=== PATIENT | male | born 1985 ===

== ENCOUNTER 2022-04-09 11:54 | Emergency (ER) | payer SELFPAY ==
[~2022-04-09] VITALS: Ht 172 cm; Wt 67.0 kg
--- NOTE | 2022-04-09 12:03 | ED Abdominal Pain ---
General Chief Complaint: Abdominal/GI Problems Stated Complaint: ABD PAIN History of Present Illness Date Seen by Provider: Apr 09, 2022 Time Seen by Provider: 11:57 Initial Comments 37-year-old male presents with abdominal pain. He reports that started about 2 days ago. He reports he did have some increased physical activity of climbing a rope. He denies any nausea, vomiting, fever, chills. The pain gets worse with deep breath, ambulation or if he presses on it. He denies any diarrhea. He reports that the pain initially was across the whole upper abdomen but now is mainly on the right side of the upper abdomen. Patient denies any other medical history does not take any medications. Allergies and Home Medications Allergies Coded Allergies: No Known Drug Allergies (Unverified , 04/09/22) Patient Home Medication List Home Medication List Reviewed: Yes Naproxen (Naprosyn) 500 Mg Tablet, 500 MG PO BID Prescribed by: PAULINA BACH on 04/09/22 [id number] Review of Systems Review of Systems Constitutional: No chills, No fever EENTM: No Symptoms Reported Respiratory: No Symptoms Reported Cardiovascular: No Symptoms Reported Gastrointestinal: See HPI, Abdominal Pain; Denies Constipated, Denies Diarrhea, Denies Nausea, Denies Vomiting Genitourinary: No Symptoms Reported Musculoskeletal: see HPI Skin: no symptoms reported Psychiatric/Neurological: No Symptoms Reported Endocrine: No Symptoms Reported Physical Exam Vital Signs Vital Signs - First Documented 04/09/22 11:57 Temp 36.8 Pulse 84 Resp 18 B/P (MAP) 108/66 (80) Pulse Ox 97 O2 Delivery Room Air Capillary Refill : Height/Weight/BMI Height: '" Weight: lbs. oz. kg; BMI Method: General Appearance: WD/WN, no apparent distress, thin Neck: full range of motion, supple Respiratory: lungs clear, normal breath sounds Cardiovascular: normal peripheral pulses, regular rate, rhythm Gastrointestinal: soft; No distended, No guarding; tenderness (Right upper quadrant) Extremities: normal range of motion, non-tender Back: normal inspection, no vertebral tenderness Neurologic/Psychiatric: alert, normal mood/affect, oriented x 3 Skin: normal color, warm/dry Progress/Results/Core Measures Results/Orders Lab Results Laboratory Tests Test 04/09/22 12:05 Range/Units White Blood Count 9.0 4.3-11.0 10^3/uL Red Blood Count 4.61 4.30-5.52 10^6/uL Hemoglobin 14.2 13.3-17.7 g/dL Hematocrit 40 40-54 % Mean Corpuscular Volume 88 80-99 fL Mean Corpuscular Hemoglobin 31 25-34 pg Mean Corpuscular Hemoglobin Concent 35 32-36 g/dL Red Cell Distribution Width 13.2 10.0-14.5 % Platelet Count 172 130-400 10^3/uL Mean Platelet Volume 9.4 9.0-12.2 fL Immature Granulocyte % (Auto) 0 % Neutrophils (%) (Auto) 70 42-75 % Lymphocytes (%) (Auto) 17 12-44 % Monocytes (%) (Auto) 12 0-12 % Eosinophils (%) (Auto) 1 0-10 % Basophils (%) (Auto) 0 0-10 % Neutrophils # (Auto) 6.3 1.8-7.8 X 10^3 Lymphocytes # (Auto) 1.5 1.0-4.0 X 10^3 Monocytes # (Auto) 1.1 H 0.0-1.0 X 10^3 Eosinophils # (Auto) 0.1 0.0-0.3 10^3/uL Basophils # (Auto) 0.0 0.0-0.1 10^3/uL Immature Granulocyte # (Auto) 0.0 0.0-0.1 10^3/uL Sodium Level 140 135-145 MMOL/L Potassium Level 3.9 3.6-5.0 MMOL/L Chloride Level 104 98-107 MMOL/L Carbon Dioxide Level 25 21-32 MMOL/L Anion Gap 11 5-14 MMOL/L Blood Urea Nitrogen 8 7-18 MG/DL Creatinine 0.80 0.60-1.30 MG/DL Estimat Glomerular Filtration Rate 118 BUN/Creatinine Ratio 10 Glucose Level 102 70-105 MG/DL Calcium Level 9.5 8.5-10.1 MG/DL Corrected Calcium 8.5-10.1 MG/DL Total Bilirubin 0.6 0.1-1.0 MG/DL Aspartate Amino Transf (AST/SGOT) 15 5-34 U/L Alanine Aminotransferase (ALT/SGPT) 17 0-55 U/L Alkaline Phosphatase 91 40-136 U/L C-Reactive Protein 1.32 H <0.50 MG/DL Total Protein 7.5 6.4-8.2 GM/DL Albumin 4.6 H 3.2-4.5 GM/DL Lipase 19 8-78 U/L My Orders Orders - PAULINA BACH DO Cbc With Automated Diff (04/09/22 12:04) Comprehensive Metabolic Panel (04/09/22 12:04) Lipase (04/09/22 12:04) Ua Culture If Indicated (04/09/22 12:04) Crp Fs (04/09/22 12:04) Acute Abd Series (04/09/22 12:04) Ketorolac Injection (Toradol Injection) (04/09/22 12:04) Ed Iv/Invasive Line Start (04/09/22 12:04) Vital Signs/I&O 04/09/22 04/09/22 11:57 14:00 Temp 36.8 36.8 Pulse 84 76 Resp 18 18 B/P (MAP) 108/66 (80) 112/82 Pulse Ox 97 99 O2 Delivery Room Air Room Air Progress Progress Note : Progress Note Patient symptoms improved with Toradol. Patient with negative x-ray and no acute findings on labs. Patient's physical exam and history is consistent with likely muscle strain. Patient and significant other also think that is likely the cause. Patient will be discharged home. He will return to the ER or follow-up with a primary care provider if symptoms worsen or feels he needs to be reevaluated. Diagnostic Imaging Diagonstic Imaging: Xray Plain Films/CT/US/NM/MRI: abdomen Comments Date of Exam:04/09/22 ACUTE ABD SERIES CLINICAL INDICATION: Patient with right upper quadrant pain. EXAM: X-ray of the abdomen with multiple supine and upright views. COMPARISON: None. FINDINGS: There is a nonobstructed bowel gas pattern. There is no evidence of abdominal free air. There are no focal calcifications overlying the expected regions/pathways of both kidneys, ureters, and bladder regions. The visualized bones and extra abdominal soft tissues are unremarkable. IMPRESSION: There is no radiographic evidence for acute abdominal/ pelvic process or urinary tract stones. Reviewed: Reviewed by Me, Reviewed/Discussed Departure Impression Primary Impression: Abdominal wall strain Qualified Codes: S39.011A - Strain of muscle, fascia and tendon of abdomen, initial encounter Disposition: 01 HOME, SELF-CARE Condition: Stable Departure-Patient Inst. Referrals: NO,LOCAL PHYSICIAN (PCP/Family) Primary Care Physician Patient Instructions: Abdominal Muscle Strain (DC) Add. Discharge Instructions: 4% topical lidocaine with menthol cream or gel use as duration Warm moist heat to affected area Gentle stretching All discharge instructions reviewed with patient and/or family. Voiced u nderstanding. Scripts Naproxen (Naprosyn) 500 Mg Tablet 500 MG PO BID, #30 TAB 0 Refills Prov: PAULINA BACH DO 04/09/22 PAULINA BACH DO Apr 09, 2022 12:03
[2022-04-09] MEDS ORDERED: KETOROLAC 30 MG/ML VIAL IVP STA (12:04)
[2022-04-09 12:11] LABS: BASOPHILS % (AUTO) 0 % (0-10); EOSINOPHILS % (AUTO) 1 % (0-10); HEMATOCRIT 40 % (40-54); HEMOGLOBIN 14.2 g/dL (13.3-17.7); LYMPHOCYTES % (AUTO) 17 % (12-44); MEAN CORPUSCULAR HEMOGLOBIN 31 pg (25-34); MEAN CORPUSCULAR HGB CONC 35 g/dL (32-36); MEAN CORPUSCULAR VOLUME 88 fL (80-99); MEAN PLATELET VOLUME 9.4 fL (9.0-12.2); MONOCYTES % (AUTO) 12 % (0-12); NEUTROPHILS % (AUTO) 70 % (42-75); PLATELET COUNT 172 10^3/uL (130-400)
[2022-04-09 12:12] LABS: EOSINOPHILS # (AUTO) 0.1 10^3/uL (0.0-0.3); LYMPHOCYTES # (AUTO) 1.5 X 10^3 (1.0-4.0); MONOCYTES # (AUTO) 1.1 X 10^3 (0.0-1.0); NEUTROPHILS # (AUTO) 6.3 X 10^3 (1.8-7.8)
[2022-04-09 12:36] LABS: ALANINE AMINOTRANSFERASE 17 U/L (0-55); ALKALINE PHOSPHATASE 91 U/L (40-136); BILIRUBIN,TOTAL 0.6 MG/DL (0.1-1.0); BUN/CREATININE RATIO 10; CALCIUM 9.5 MG/DL (8.5-10.1); CARBON DIOXIDE 25 MMOL/L (21-32); CHLORIDE 104 MMOL/L (98-107); GFR ESTIMATED 118; GLUCOSE 102 MG/DL (70-105); POTASSIUM 3.9 MMOL/L (3.6-5.0); SODIUM 140 MMOL/L (135-145); TOTAL PROTEIN 7.5 GM/DL (6.4-8.2)
[2022-04-09 12:37] LABS: ALBUMIN 4.6 GM/DL (3.2-4.5); LIPASE 19 U/L (8-78)
--- NOTE | 2022-04-09 12:49 | Diagnostic Imaging Report ---
CLINICAL INDICATION: Patient with right upper quadrant pain. EXAM: X-ray of the abdomen with multiple supine and upright views. COMPARISON: None. FINDINGS: There is a nonobstructed bowel gas pattern. There is no evidence of abdominal free air. There are no focal calcifications overlying the expected regions/pathways of both kidneys, ureters, and bladder regions. The visualized bones and extra abdominal soft tissues are unremarkable. IMPRESSION: There is no radiographic evidence for acute abdominal/ pelvic process or urinary tract stones. Dictated by: Dictated on workstation # [id number]
[2022-04-09] MEDS ORDERED: NAPR-1071 PO (13:59)
[2022-04-09 14:00] VITALS: BP 112/82
== END 2022-04-09 14:00 | disposition home or self-care (01) ==
LOC: ER FS 11:55
DX: S39.011A Strain of muscle, fascia and tendon of abdomen, initial encounter (principal); X58.XXXA Exposure to other specified factors, initial encounter; Y93.39 Activity, other involving climbing, rappelling and jumping off
CPT/HCPCS: 36415; 74022; 80053; 83690; 85025; 86141